=== PATIENT | male | born 1990 | race Caucasian/White ===

== ENCOUNTER 2020-12-23 10:19 | Emergency (ER) | payer MEDICAID ==
[2020-12-23] MEDS ORDERED: Ketorolac 60 MG/2 ML SDV IM ONE (10:49)
--- NOTE | 2020-12-23 10:54 | EDM.PDOC ---
ED HPI GENERAL MEDICAL PROBLEM - General Chief Complaint: Back Pain or Injury Stated Complaint: LOW RT BACK PAIN Time Seen by Provider: 12/23/20 10:40 Source of Information: Reports: Patient History Limitations: Reports: No Limitations - History of Present Illness INITIAL COMMENTS - FREE TEXT/NARRATIVE: 30-year-old male that has had a prior issue with sciatic pain developed right lower back pain yesterday, it worsened overnight and he was having difficulty sleeping. This morning the pain is worse, radiates around into the right groin and his leg feels weird. No incontinence, no pain radiating down the leg. No trauma. Onset: Gradual Duration: Hour(s): (Symptoms for about 24 hours) Location: Reports: Back (Right lumbar area) Quality: Reports: Sharp, Stabbing Worsens with: Reports: Other (Walking is painful), Movement Associated Symptoms: Reports: No Other Symptoms Right Lower Back Pain Score (Numeric/FACES): 8 - Related Data Allergies Allergy/AdvReac Type Severity Reaction Status Date / Time No Known Allergies Allergy Verified 12/23/20 10:28 Home Meds: Home Meds NK [No Known Home Meds] 12/23/20 [History] Past Medical History - Past Health History Medical/Surgical History: Denies Medical/Surgical History Social & Family History - Tobacco Use Tobacco Use Status *Q: Never Tobacco User - Caffeine Use Caffeine Use: Reports: Coffee, Energy Drinks - Recreational Drug Use Recreational Drug Use: No ED ROS GENERAL - Review of Systems Review Of Systems: See Below Constitutional: Denies: Fever, Chills HEENT: Reports: No Symptoms Respiratory: Denies: Shortness of Breath GI/Abdominal: Denies: Nausea, Vomiting Musculoskeletal: Reports: Back Pain Skin: Denies: Bruising Neurological: Denies: Paresthesia Psychiatric: Reports: No Symptoms ED EXAM,LOWER BACK PAIN/INJURY - Physical Exam Exam: See Below Exam Limited By: No Limitations General Appearance: Alert, No Apparent Distress Head: Atraumatic Respiratory/Chest: No Respiratory Distress Back Exam: Paraspinal Tenderness (Patient is very tender to palpation just to the right of the lumbar spine above the sacrum. Buttock is nontender, straight leg raising is equivocal) Extremities: No: Pedal Edema Neurological: Alert, Normal Mood/Affect, No Motor/Sensory Deficits, Oriented x 3 Course - Vital Signs Last Recorded V/S: Last Vital Signs Temp 97 F 03/14/21 10:32 Pulse 60 12/23/20 10:32 Resp 16 12/23/20 10:32 BP 147/91 H 12/23/20 10:32 Pulse Ox 97 12/23/20 10:32 - Orders/Labs/Meds Meds: Medications Discontinued Medications Generic Name Dose Route Start Last Admin Trade Name Shun PRN Reason Stop Dose Admin Ketorolac Tromethamine 60 mg 12/23/20 10:49 12/23/20 10:54 Ketorolac 60 Mg/2 Ml Sdv IM 12/23/20 10:50 60 mg ONETIME ONE Administration - Re-Assessments/Exams Free Text/Narrative Re-Assessment/Exam: 12/23/20 10:54 Patient was given 60 mg of IM Toradol. 12/23/20 11:29 30 minutes after the Toradol, the patient said it helped. Straight leg raising was repeated and there were no symptoms, internal and external rotation of the hip was nontender. I encouraged him to continue with anti-inflammatories and gave him 12 hydrocodone for extra pain control and he is going to increase activity as tolerated. Recheck in 3 to 4 days if not improving satisfactorily. Departure - Departure Time of Disposition: 11:32 Disposition: Home, Self-Care 01 Clinical Impression: Acute low back pain Qualifiers: Back pain laterality: right Sciatica presence: without sciatica Qualified Code(s): M54.5 - Low back pain - Discharge Information Instructions: Acute Back Pain, Adult Referrals: PCP,None [Primary Care Provider] - Forms: ED Department Discharge Care Plan Goals: Continue with ibuprofen, add stronger pain meds as directed if needed, and increase activity as tolerated. Try to stay active but avoid stressing the back with lifting or bending. Recheck in 3 to 4 days if not improving satisfactorily. Sepsis Event Note (ED) - Evaluation Sepsis Screening Result: No Definite Risk - Focused Exam Vital Signs: Vital Signs Temp Pulse Resp BP Pulse Ox 12/23/20 10:32 97 F 60 16 147/91 H 97
== END 2020-12-23 11:38 | disposition home or self-care (01) ==
LOC: JP.ED 10:19
DX: M54.5 Low back pain (principal)
CPT/HCPCS: 96372; 99283; J1885

== ENCOUNTER 2021-01-10 15:44 | Emergency (ER) | payer MEDICAID ==
--- NOTE | 2021-01-10 16:21 | EDM.PDOC ---
ED HPI GENERAL MEDICAL PROBLEM - General Chief Complaint: Abdominal Pain Stated Complaint: RT SIDE LOW BACK PAIN,ABD PAIN, CHEST PAIN Time Seen by Provider: 01/10/21 16:14 Source of Information: Reports: Patient, RN Notes Reviewed History Limitations: Reports: No Limitations - History of Present Illness INITIAL COMMENTS - FREE TEXT/NARRATIVE: 30-year-old gentleman presents emergency department a complaint of abdominal pain, he states that abdominal pain for about a week feels more like a pressure he does admit he has had a change in bowel habits he does not go as frequently as he once did. On his way over here he had a bout of chest pain shortness of breath blurry vision lasted about 5 seconds. 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 Denies: Nausea, Vomiting : Reports: No Symptoms ED EXAM, GI/ABD - Physical Exam Exam: See Below Exam Limited By: No Limitations General Appearance: Alert, WD/WN, No Apparent Distress Respiratory/Chest: No Respiratory Distress, Lungs Clear, Normal Breath Sounds, No Accessory Muscle Use, Chest Non-Tender Cardiovascular: Regular Rate, Rhythm, No Murmur GI/Abdominal Exam: Soft, Non-Tender #1 Interpretation EKG Date: 01/10/21 Time: 16:54 Rhythm: NSR [place]: Normal P-Wave: Present QRS: Normal ST-T: Normal QT: Normal Comparison: NA - No Prior EKG Course - Vital Signs Last Recorded V/S: Last Vital Signs Temp 98 F 01/10/21 16:10 Pulse 71 01/10/21 16:10 Resp 16 01/10/21 16:10 BP 146/94 H 01/10/21 16:10 Pulse Ox 97 01/10/21 16:10 - Orders/Labs/Meds Orders: Active Orders 24 hr Category Date Time Status EKG Documentation Completion [RC] ASDIRECTED Care 01/10/21 16:18 Active Abdomen 1V Upright [CR] Stat Exams 01/10/21 16:18 Taken EKG 12 Lead [EK] Stat Ther 01/10/21 16:18 Ordered Labs: Laboratory Tests 01/10/21 01/10/21 Range/Units 16:38 16:38 WBC 5.9 (4.5-11.0) K/uL RBC 5.06 (4.30-5.90) M/uL Hgb 14.2 (12.0-15.0) g/dL Hct 43.3 (40.0-54.0) % MCV 86 (80-98) fL MCH 28 (27-31) pg MCHC 33 (32-36) % Plt Count 282 (150-400) K/uL Neut % (Auto) 64 (36-66) % Lymph % (Auto) 25 (24-44) % [place] % (Auto) 9 H (2-6) % Eos % (Auto) 2 (2-4) % Baso % (Auto) 1 (0-1) % Sodium 146 (140-148) mmol/L Potassium 4.5 (3.6-5.2) mmol/L Chloride 104 (100-108) mmol/L Carbon Dioxide 29 (21-32) mmol/L Anion Gap 12.8 (5.0-14.0) mmol/L BUN 12 (7-18) mg/dL Creatinine 1.1 (0.8-1.3) mg/dL Est Cr Clr Drug Dosing 99.55 mL/min Estimated GFR (MDRD) > 60 (>60) Glucose 92 (74-106) mg/dL Calcium 9.5 (8.5-10.1) mg/dL Total Bilirubin 0.4 (0.2-1.0) mg/dL AST 34 (15-37) U/L ALT 84 H (12-78) U/L Alkaline Phosphatase 106 (46-116) U/L Troponin I < 0.017 (0.000-0.056) ng/mL Total Protein 7.6 (6.4-8.2) g/dL Albumin 4.2 (3.4-5.0) g/dL Globulin 3.4 (2.3-3.5) g/dL Albumin/Globulin Ratio 1.2 (1.2-2.2) Meds: Medications Discontinued Medications Generic Name Dose Route Start Last Admin Trade Name Shun PRN Reason Stop Dose Admin Cyclobenzaprine HCl 10 mg 01/10/21 17:23 01/10/21 17:39 Cyclobenzaprine 10 Mg Tab PO 01/10/21 17:24 10 mg ONETIME ONE Administration Departure - Departure Time of Disposition: 18:07 Disposition: Home, Self-Care 01 Condition: Fair Clinical Impression: Abdominal pain Qualifiers: Abdominal location: unspecified location Qualified Code(s): R10.9 - Unspecified abdominal pain - Discharge Information Instructions: Abdominal Pain, Adult Referrals: PCP,None [Primary Care Provider] - Forms: ED Department Discharge Additional Instructions: Try the Flexeril as needed continue with your Tylenol and Motrin for pain control, please followup with your primary care provider in 3-5 days if not better, please call return to the emergency department with worsening of symptoms. Sepsis Event Note (ED) - Evaluation Sepsis Screening Result: No Definite Risk - Focused Exam Vital Signs: Vital Signs Temp Pulse Resp BP Pulse Ox 01/10/21 16:10 98 F 71 16 146/94 H 97 01/10/21 16:00 98 F 71 16 146/94 H 97 - My Orders Last 24 Hours: My Active Orders 01/10/21 16:18 EKG Documentation Completion [RC] ASDIRECTED Abdomen 1V Upright [CR] Stat EKG 12 Lead [EK] Stat - Assessment/Plan Last 24 Hours: My Active Orders 01/10/21 16:18 EKG Documentation Completion [RC] ASDIRECTED Abdomen 1V Upright [CR] Stat EKG 12 Lead [EK] Stat Plan: Assessment Acuity = acute Site and laterality = abdominal pain Etiology = unknown Manifestations = none Location of injury = Home Lab values = CBC CMP plain film abdomen showed no acute process troponin is negative Plan He had good relief with Flexeril he did have a history of back injury a week prior we will try Flexeril 10 mg 1 tab p.o. 3 times daily as needed total #15 follow-up primary care 3 to 5 days if not better This note was dictated using [employer] recognition software please call with any questions on syntax or grammar.
[2021-01-10] MEDS ORDERED: Cyclobenzaprine 10 MG Tab PO ONE (17:23)
--- NOTE | 2021-01-11 08:59 | CR ---
Abdomen 1V Upright CLINICAL HISTORY: Abdominal pain FINDINGS: No free air is identified. Small intestinal gas pattern is nonacute. There is gas and feces are the colon. No definite urinary calcifications are seen IMPRESSION: Nonspecific study of the abdomen
== END 2021-01-10 18:20 | disposition home or self-care (01) ==
LOC: JP.ED 15:44
DX: R10.9 Unspecified abdominal pain (principal)
CPT/HCPCS: 36415; 74018; 74018-26; 80053; 84484; 85025; 93005; 99283; 99284-25; A9270-GY

== ENCOUNTER 2021-01-21 15:12 | Emergency (ER) | payer MEDICAID ==
[2021-01-21] MEDS ORDERED: Sodium Chloride 0.9% 1,000 ML IV STA (16:07)
[2021-01-21] MEDS ORDERED: Sodium Chloride 0.9% 10 ML Syringe FLUSH PRN (16:07)
--- NOTE | 2021-01-21 16:12 | EDM.PDOC ---
ED HPI GENERAL MEDICAL PROBLEM - General Chief Complaint: Abdominal Pain Stated Complaint: RIGHT SIDE AND CHEST PAIN Time Seen by Provider: 01/21/21 16:01 Source of Information: Reports: Patient, Old Records, RN Notes Reviewed History Limitations: Reports: No Limitations - History of Present Illness INITIAL COMMENTS - FREE TEXT/NARRATIVE: 30-year-old gentleman presents emergency department day complaint of right flank abdominal pain, I had the opportunity to evaluate him about 2 weeks ago at which time blood work was unremarkable plain film the abdomen does show large amount of stool and gas recommended trying colonoscopy prep because I felt he was constipated unfortunately did not try any that. He now returns emergency department stating still having abdominal pain is not getting any better he also is having some chest pain as well comes at night last less than a minute tingling down his left arm he admits that his anxiety is in good control. He is not established with primary care because states "does not know how" - Related Data Allergies Allergy/AdvReac Type Severity Reaction Status Date / Time No Known Allergies Allergy Verified 01/21/21 15:38 Home Meds: Home Meds Ibuprofen 400 - 600 mg PO ASDIRECTED 01/21/21 [History] Past Medical History Musculoskeletal History: Reports: Fracture Other Musculoskeletal History: right ankle Neurological History: Reports: Other (See Below) Other Neuro History: facial numbness Psychiatric History: Reports: Anxiety - Infectious Disease History Infectious Disease History: Reports: Chicken Pox - Past Surgical History Male Surgical History: Reports: Other (See Below) Other Male Surgeries/Procedures: 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 Denies: Constipation, Diarrhea, Nausea, Vomiting : Reports: No Symptoms Musculoskeletal: Reports: No Symptoms Skin: Reports: No Symptoms Neurological: Reports: Tingling (Left arm) ED EXAM, GI/ABD - Physical Exam Exam: See Below Exam Limited By: No Limitations General Appearance: Alert, WD/WN, No Apparent Distress Respiratory/Chest: No Respiratory Distress, Lungs Clear, Normal Breath Sounds, No Accessory Muscle Use, Chest Non-Tender Cardiovascular: Regular Rate, Rhythm, No Murmur GI/Abdominal Exam: Soft, Non-Tender #1 Interpretation EKG Date: 01/21/21 Rhythm: NSR [place]: Normal P-Wave: Present QRS: Normal ST-T: Normal QT: Normal Comparison: NA - No Prior EKG Course - Vital Signs Last Recorded V/S: Last Vital Signs Temp 97.6 F 01/21/21 15:37 Pulse 84 01/21/21 15:37 Resp 16 01/21/21 15:37 BP 150/101 H 01/21/21 15:37 Pulse Ox 99 01/21/21 15:37 - Orders/Labs/Meds Orders: Active Orders 24 hr Category Date Time Status EKG Documentation Completion [RC] ASDIRECTED Care 01/21/21 16:08 Active Peripheral IV Care [RC] . DIRECTED Care 01/21/21 16:08 Active Sodium Chloride 0.9% [Saline Flush] Med 01/21/21 16:07 Active 10 ml FLUSH ASDIRECTED PRN Peripheral IV Insertion Adult [OM.PC] Urgent Oth 01/21/21 16:07 Ordered EKG 12 Lead [EK] Stat Ther 01/21/21 16:08 Ordered Medication Orders Sodium Chloride (Sodium Chloride 0.9% 10 Ml Syringe) 10 ml FLUSH ASDIRECTED PRN PRN Reason: Keep Vein Open Last Admin: 01/21/21 17:56 Dose: 10 ml Documented by: [email or web address] Labs: Laboratory Tests 01/21/21 01/21/21 01/21/21 Range/Units 16:21 16:21 16:21 WBC 5.2 (4.5-11.0) K/uL RBC 5.15 (4.30-5.90) M/uL Hgb 14.6 (12.0-15.0) g/dL Hct 43.2 (40.0-54.0) % MCV 84 (80-98) fL MCH 28 (27-31) pg MCHC 34 (32-36) % Plt Count 321 (150-400) K/uL Neut % (Auto) 50 (36-66) % Lymph % (Auto) 37 (24-44) % [place] % (Auto) 10 H (2-6) % Eos % (Auto) 2 (2-4) % Baso % (Auto) 1 (0-1) % Sodium 142 (140-148) mmol/L Potassium 4.5 (3.6-5.2) mmol/L Chloride 102 (100-108) mmol/L Carbon Dioxide 28 (21-32) mmol/L Anion Gap 12.3 (5.0-14.0) mmol/L BUN 11 (7-18) mg/dL Creatinine 1.0 (0.8-1.3) mg/dL Est Cr Clr Drug Dosing TNP Estimated GFR (MDRD) > 60 (>60) Glucose 90 (74-106) mg/dL Lactic Acid 1.0 (0.4-2.0) mmol/L Calcium 9.6 (8.5-10.1) mg/dL Total Bilirubin 0.2 (0.2-1.0) mg/dL AST 34 (15-37) U/L ALT 83 H (12-78) U/L Alkaline Phosphatase 120 H (46-116) U/L Troponin I < 0.017 (0.000-0.056) ng/mL Total Protein 8.1 (6.4-8.2) g/dL Albumin 4.4 (3.4-5.0) g/dL Globulin 3.7 H (2.3-3.5) g/dL Albumin/Globulin Ratio 1.2 (1.2-2.2) Lipase 138 (73-393) U/L Urine Color (YELLOW) Urine Appearance (CLEAR) Urine pH (5.0-8.0) Ur Specific [place] (1.008-1.030) Urine Protein (NEGATIVE) mg/dL Urine Glucose (UA) (NEGATIVE) mg/dL Urine Ketones (NEGATIVE) mg/dL Urine Occult Blood (NEGATIVE) Urine Nitrite (NEGATIVE) Urine Bilirubin (NEGATIVE) Urine Urobilinogen (0.2-1.0) EU/dL Ur Leukocyte Esterase (NEGATIVE) Urine RBC (0-5) Urine WBC (0-5) Ur Epithelial Cells Amorphous Sediment Urine Bacteria Urine Mucus Urine Opiates Screen (NEGATIVE) Ur Oxycodone Screen (NEGATIVE) Urine Methadone Screen (NEGATIVE) Ur Propoxyphene Screen (NEGATIVE) Ur Barbiturates Screen (NEGATIVE) Ur Tricyclics Screen (NEGATIVE) Ur Phencyclidine Scrn (NEGATIVE) Ur Amphetamine Screen (NEGATIVE) U Methamphetamines Scrn (NEGATIVE) Urine MDMA Screen (NEGATIVE) U Benzodiazepines Scrn (NEGATIVE) U Cocaine Metab Screen (NEGATIVE) U Marijuana (THC) Screen (NEGATIVE) 01/21/21 01/21/21 Range/Units 16:56 16:56 WBC (4.5-11.0) K/uL RBC (4.30-5.90) M/uL Hgb (12.0-15.0) g/dL Hct (40.0-54.0) % MCV (80-98) fL MCH (27-31) pg MCHC (32-36) % Plt Count (150-400) K/uL Neut % (Auto) (36-66) % Lymph % (Auto) (24-44) % [place] % (Auto) (2-6) % Eos % (Auto) (2-4) % Baso % (Auto) (0-1) % Sodium (140-148) mmol/L Potassium (3.6-5.2) mmol/L Chloride (100-108) mmol/L Carbon Dioxide (21-32) mmol/L Anion Gap (5.0-14.0) mmol/L BUN (7-18) mg/dL Creatinine (0.8-1.3) mg/dL Est Cr Clr Drug Dosing Estimated GFR (MDRD) (>60) Glucose (74-106) mg/dL Lactic Acid (0.4-2.0) mmol/L Calcium (8.5-10.1) mg/dL Total Bilirubin (0.2-1.0) mg/dL AST (15-37) U/L ALT (12-78) U/L Alkaline Phosphatase (46-116) U/L Troponin I (0.000-0.056) ng/mL Total Protein (6.4-8.2) g/dL Albumin (3.4-5.0) g/dL Globulin (2.3-3.5) g/dL Albumin/Globulin Ratio (1.2-2.2) Lipase (73-393) U/L Urine Color Yellow (YELLOW) Urine Appearance Clear (CLEAR) Urine pH 6.5 (5.0-8.0) Ur Specific [place] >= 1.030 (1.008-1.030) Urine Protein Negative (NEGATIVE) mg/dL Urine Glucose (UA) Negative (NEGATIVE) mg/dL Urine Ketones Negative (NEGATIVE) mg/dL Urine Occult Blood Negative (NEGATIVE) Urine Nitrite Negative (NEGATIVE) Urine Bilirubin Negative (NEGATIVE) Urine Urobilinogen 0.2 (0.2-1.0) EU/dL Ur Leukocyte Esterase Negative (NEGATIVE) Urine RBC Not seen (0-5) Urine WBC Not seen (0-5) Ur Epithelial Cells Not seen Amorphous Sediment Not seen Urine Bacteria Rare Urine Mucus Rare Urine Opiates Screen Negative (NEGATIVE) Ur Oxycodone Screen Negative (NEGATIVE) Urine Methadone Screen Negative (NEGATIVE) Ur Propoxyphene Screen Negative (NEGATIVE) Ur Barbiturates Screen Negative (NEGATIVE) Ur Tricyclics Screen Negative (NEGATIVE) Ur Phencyclidine Scrn Negative (NEGATIVE) Ur Amphetamine Screen Negative (NEGATIVE) U Methamphetamines Scrn Negative (NEGATIVE) Urine MDMA Screen Negative (NEGATIVE) U Benzodiazepines Scrn Negative (NEGATIVE) U Cocaine Metab Screen Negative (NEGATIVE) U Marijuana (THC) Screen Negative (NEGATIVE) Meds: Medications Generic Name Dose Route Start Last Admin Trade Name Freq PRN Reason Stop Dose Admin Sodium Chloride 10 ml 01/21/21 16:07 01/21/21 17:56 Sodium Chloride 0.9% 10 Ml Syringe FLUSH 10 ml ASDIRECTED PRN Administration Keep Vein Open Discontinued Medications Generic Name Dose Route Start Last Admin Trade Name Freq PRN Reason Stop Dose Admin Sodium Chloride 1,000 mls @ 500 mls/hr 01/21/21 16:07 01/21/21 17:56 Normal Saline IV 01/21/21 18:06 500 mls/hr .BOLUS STA Administration Sodium Chloride 85 mls @ 3.5 mls/sec 01/21/21 16:30 01/21/21 17:08 Normal Saline IV 01/21/21 17:00 3.5 mls/sec ASDIRECTED POLLY Administration Iopamidol 150 ml 01/21/21 16:30 01/21/21 17:08 Iopamidol 612 Mg/Ml 150 Ml Bottle IV 01/21/21 17:00 150 ml . DIRECTED POLLY Administration Sodium Chloride 10 ml 01/21/21 16:30 01/21/21 17:08 Sodium Chloride 0.9% 10 Ml Syringe FLUSH 01/21/21 16:31 10 ml ONETIME ONE Administration Departure - Departure Time of Disposition: 18:27 Disposition: Home, Self-Care 01 Condition: Fair Clinical Impression: Gallbladder disease - Discharge Information Referrals: PCP,None [Primary Care Provider] - Forms: ED Department Discharge Additional Instructions: Try the MiraLAX, try different dietary habits to see if this improves your gallbladder disease, please establish with primary care for further evaluation Sepsis Event Note (ED) - Evaluation Sepsis Screening Result: No Definite Risk - Focused Exam Vital Signs: Vital Signs Temp Pulse Resp BP Pulse Ox 01/21/21 15:37 97.6 F 84 16 150/101 H 99 - My Orders Last 24 Hours: My Active Orders 01/21/21 16:07 Sodium Chloride 0.9% [Saline Flush] 10 ml FLUSH ASDIRECTED PRN Peripheral IV Insertion Adult [OM.PC] Urgent 01/21/21 16:08 EKG Documentation Completion [RC] ASDIRECTED Peripheral IV Care [RC] . DIRECTED EKG 12 Lead [EK] Stat - Assessment/Plan Last 24 Hours: My Active Orders 01/21/21 16:07 Sodium Chloride 0.9% [Saline Flush] 10 ml FLUSH ASDIRECTED PRN Peripheral IV Insertion Adult [OM.PC] Urgent 01/21/21 16:08 EKG Documentation Completion [RC] ASDIRECTED Peripheral IV Care [RC] . DIRECTED EKG 12 Lead [EK] Stat Plan: Assessment Acuity = acute Site and laterality = gallbladder disease Etiology = unknown Manifestations = abdominal pain Location of injury = Home Lab values = CBC unremarkable AST slightly elevated 83 alk phos slightly elevated at 120 probably related to gallbladder disease urinalysis unremarkable urine drug screen is negative CT scan does describe hepatic steatosis as well as punctate lesions consistent with gallstones and sludge in the gallbladder with moderate amount of stool in the ascending colon Plan I did review with him lab work and provided him a copy of his CT scan he is going to follow-up with his primary care for further evaluation he will also make some dietary changes he will also try some MiraLAX This note was dictated using [employer] voice recognition software please call with any questions on syntax or grammar.
[2021-01-21] MEDS ORDERED: Sodium Chloride 0.9% 10 ML Syringe FLUSH ONE (16:30)
[2021-01-21] MEDS ORDERED: Iopamidol 612 MG/ML 150 ML Bottle IV SCH (16:30)
--- NOTE | 2021-01-21 18:13 | CRLCT ---
INDICATION: Right flank pain TECHNIQUE: CT abdomen and pelvis acquired with IV contrast. 150 mL of Isovue 300 administered. COMPARISON: None available FINDINGS: Lower chest: A questionable small hiatal hernia. Liver: Mild steatosis. Spleen: Unremarkable. Pancreas: Unremarkable. Gallbladder and bile ducts: Apparent subtle punctate and reticular densities within the gallbladder could represent sludge, poorly calcified gallstones or artifact. Adrenal glands: Unremarkable. Kidneys: Symmetrical nephrograms without hydronephrosis. Minor focal stranding along the lateral aspect of the left mid kidney, nonspecific. GI tract: Mild thickening of the gastric pylorus wall versus under distention. No bowel obstruction. Borderline mid appendiceal caliber is related to luminal debris, without findings of appendicitis. No significant pericolonic changes. Foci of mild colonic wall prominence are at least partially related to under distension. Vascular structures: Unremarkable. Lymph nodes: Unremarkable. Miscellaneous: No significant free fluid or free air. A small fat containing umbilical hernia. Apparent post right orchiectomy changes. Pelvic Organs: Mild bladder wall prominence is at least partially related to underdistention. Unremarkable prostate. Bones: A sclerotic lesion in the right femoral intertrochanteric region, nonspecific. IMPRESSION: No obstructive uropathy. No evidence of gross appendicitis, diverticulitis or bowel obstruction. Mild gastric pylorus wall prominence versus underdistention. Correlate clinically to exclude PUD. Mild bladder wall prominence is at least partially related to under distention. Correlate with urinalysis. Mild hepatic steatosis. Status post right orchiectomy. A proximal right femoral sclerotic focus, nonspecific. If there is history of neoplasm, consider follow-up to ensure stability. Dictated by Siva Lynn MD @ 01/21/2021 6:09:21 PM Please note that all CT scans at this facility use dose modulation, iterative reconstruction, and/or weight-based dosing when appropriate to reduce radiation dose to as low as reasonably achievable. Dictated by: Siva Lynn MD @ 01/21/2021 18:11:39 (Electronically Signed)
== END 2021-01-21 18:54 | disposition home or self-care (01) ==
LOC: JP.ED 15:12
DX: K82.9 Disease of gallbladder, unspecified (principal); R07.9 Chest pain, unspecified; R20.2 Paresthesia of skin
CPT/HCPCS: 36415; 74177; 80053; 80305; 81001; 83605; 83690; 84484; 85025; 99284; J7030; Q9967

== ENCOUNTER 2021-03-23 10:51 | Emergency (ER) | payer MEDICAID ==
--- NOTE | 2021-03-23 12:11 | EDM.PDOC ---
ED HPI GENERAL MEDICAL PROBLEM - General Chief Complaint: Abdominal Pain Stated Complaint: SWOLLEN RIGHT SIDE Time Seen by Provider: 03/23/21 11:41 Source of Information: Reports: Patient, Old Records History Limitations: Reports: No Limitations - History of Present Illness INITIAL COMMENTS - FREE TEXT/NARRATIVE: 30 yo male presents to the ER in no acute distress complaining of right sided ABD pain. The pain is intermittently sharp. Denies pain with urination. Last BM was multiple days ago. Earlier this week - Related Data Allergies Allergy/AdvReac Type Severity Reaction Status Date / Time No Known Allergies Allergy Verified 03/23/21 11:04 Home Meds: Home Meds Omeprazole 1 tab PO DAILY 03/23/21 [History] Past Medical History - Past Health History Medical/Surgical History: Denies Medical/Surgical History HEENT History: Reports: None Cardiovascular History: Reports: None Respiratory History: Reports: None Gastrointestinal History: Reports: None Musculoskeletal History: Reports: Fracture Other Musculoskeletal History: right ankle Neurological History: Reports: Other (See Below) Other Neuro History: facial numbness Psychiatric History: Reports: Anxiety Endocrine/Metabolic History: Reports: None Hematologic History: Reports: None Immunologic History: Reports: None Oncologic (Cancer) History: Reports: None Dermatologic History: Reports: None - Infectious Disease History Infectious Disease History: Reports: Chicken Pox - Past Surgical History Male Surgical History: Reports: Other (See Below) Other Male Surgeries/Procedures: 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 Denies: Nausea, Vomiting ED EXAM, GI/ABD - Physical Exam Exam: See Below Exam Limited By: No Limitations General Appearance: Alert, WD/WN, No Apparent Distress Respiratory/Chest: No Respiratory Distress, Lungs Clear, Normal Breath Sounds. No: Crackles, Rhonchi, Wheezing Cardiovascular: Regular Rate, Rhythm, No Murmur GI/Abdominal Exam: Normal Bowel Sounds, Soft, No Distention, Distended (mild), Tender. No: Rigid, Rebound, Mass, Hepatomegaly Course - Vital Signs Last Recorded V/S: Last Vital Signs Temp 36.3 C 03/23/21 11:10 Pulse 72 03/23/21 11:10 Resp 14 03/23/21 11:10 BP 139/88 03/23/21 11:10 Pulse Ox 98 03/23/21 11:10 - Orders/Labs/Meds Orders: Active Orders 24 hr Category Date Time Status Abdomen 1V Upright [CR] Stat Exams 03/23/21 12:03 Taken Labs: Laboratory Tests 03/23/21 Range/Units 12:12 WBC 3.9 L (4.5-11.0) K/uL RBC 5.22 (4.30-5.90) M/uL Hgb 15.0 (12.0-15.0) g/dL Hct 43.7 (40.0-54.0) % MCV 84 (80-98) fL MCH 29 (27-31) pg MCHC 34 (32-36) % Plt Count 295 (150-400) K/uL Neut % (Auto) 55.4 (36-66) % Lymph % (Auto) 33.2 (24-44) % [place] % (Auto) 8.3 H (2-6) % Eos % (Auto) 1.3 L (2-4) % Baso % (Auto) 1.8 H (0-1) % Meds: Medications Discontinued Medications Generic Name Dose Route Start Last Admin Trade Name Freq PRN Reason Stop Dose Admin Magnesium Citrate 296 ml 03/23/21 13:02 03/23/21 13:17 Magnesium Citrate Solution 296 Ml Bottle PO 03/23/21 13:03 296 ml ONETIME ONE Administration - Re-Assessments/Exams Free Text/Narrative Re-Assessment/Exam: 03/23/21 14:11 WBC mildly low no indication of appendix. reviewed CT from 6 weeks ago. pt has not established care with PCP. moderate amount of retained stool on ABD x-ray no indication of obstruction normal gas patterns. pt given 1 bottle of mg citrate in ER without results. He would like to DC home. Departure - Departure Time of Disposition: 14:15 Disposition: Home, Self-Care 01 Condition: Good Clinical Impression: Constipation Qualifiers: Constipation type: slow transit constipation Qualified Code(s): K59.01 - Slow transit constipation - Discharge Information *PRESCRIPTION DRUG MONITORING PROGRAM REVIEWED*: Not Applicable *COPY OF PRESCRIPTION DRUG MONITORING REPORT IN PATIENT TUSHAR: Not Applicable Instructions: Constipation, Adult, [id number] Referrals: PCP,None [Primary Care Provider] - Forms: ED Department Discharge Additional Instructions: constipation: repeat bottle of magnisium citrate if no results by this evening. you will find this in the pharmacy section near the bowel treatments goal is one large soft bowel movement daily minimum of 100 ounces of fluid daily, more if you are working out side in the he at. 6 servings of fruits and vegetables daily, this will give you the fiber you need to stay regular prunes are a good source of fiber establish care with a primary care doctor Sepsis Event Note (ED) - Evaluation Sepsis Screening Result: No Definite Risk - Focused Exam Vital Signs: Vital Signs Temp Pulse Resp BP Pulse Ox 03/23/21 11:10 36.3 C 72 14 139/88 98 - My Orders Last 24 Hours: My Active Orders 03/23/21 12:03 Abdomen 1V Upright [CR] Stat - Assessment/Plan Last 24 Hours: My Active Orders 03/23/21 12:03 Abdomen 1V Upright [CR] Stat
[2021-03-23] MEDS ORDERED: Magnesium Citrate Solution 296 ML Bottle PO ONE (13:02)
--- NOTE | 2021-03-25 09:41 | CR ---
Abdomen 1V Upright CLINICAL HISTORY: Abdominal pain FINDINGS: No free air is identified. Lung bases are clear. Small intestinal gas pattern is nonacute. There is gas and feces in the colon. IMPRESSION: Nonacute intestinal gas pattern
== END 2021-03-23 14:27 | disposition home or self-care (01) ==
LOC: JP.ED 10:51
DX: K59.01 Slow transit constipation (principal); Z79.899 Other long term (current) drug therapy
CPT/HCPCS: 36415; 74018; 85025; 99283; 99284; A9270

== ENCOUNTER 2021-04-23 13:18 | Emergency (ER) | payer MEDICAID ==
--- NOTE | 2021-04-23 14:32 | EDM.PDOC ---
ED HPI GENERAL MEDICAL PROBLEM - General Chief Complaint: Upper Extremity Injury/Pain Stated Complaint: LEFT ARM IS NUMB FROM SHOULDER DOWN Time Seen by Provider: 04/23/21 14:26 Source of Information: Reports: Patient, RN Notes Reviewed History Limitations: Reports: No Limitations - History of Present Illness INITIAL COMMENTS - FREE TEXT/NARRATIVE: 30-year-old gentleman presents emergency department day complaint of chest pain, he states that chest pain on and off for the last 4 days he also has a history of anxiety has had some numbness and tingling into his left arm no nausea vomiting no shortness of breath. He has tried anxiety medications in the past however he does not tolerate - Related Data Allergies Allergy/AdvReac Type Severity Reaction Status Date / Time No Known Allergies Allergy Verified 04/23/21 13:47 Home Meds: Home Meds Omeprazole 1 tab PO DAILY 03/23/21 [History] Past Medical History Musculoskeletal History: Reports: Fracture Other Musculoskeletal History: right ankle Neurological History: Reports: Other (See Below) Other Neuro History: facial numbness Psychiatric History: Reports: Anxiety - Infectious Disease History Infectious Disease History: Reports: Chicken Pox - Past Surgical History Head Surgeries/Procedures: Reports: None Male Surgical History: Reports: Other (See Below) Other Male Surgeries/Procedures: 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 Neurological Surgical History: Reports: None Musculoskeletal Surgical History: Reports: None Dermatological Surgical History: Reports: None Social & Family History - Tobacco Use Tobacco Use Status *Q: Never Tobacco User Second Hand Smoke Exposure: No - Caffeine Use Caffeine Use: Reports: Coffee, Energy Drinks - Recreational Drug Use Recreational Drug Use: No Review of Systems - Review of Systems Review Of Systems: See Below Respiratory: Reports: No Symptoms Cardiovascular: Reports: Chest Pain Neurological: Reports: Numbness ED EXAM, GENERAL - Physical Exam Exam: See Below Exam Limited By: No Limitations General Appearance: Alert, WD/WN, No Apparent Distress Respiratory/Chest: No Respiratory Distress, Lungs Clear, Normal Breath Sounds, No Accessory Muscle Use, Chest Non-Tender Cardiovascular: Regular Rate, Rhythm, No Murmur GI/Abdominal: Soft, Non-Tender #1 Interpretation EKG Date: 04/23/21 Time: 14:56 Rhythm: NSR [place]: Normal P-Wave: Present QRS: Normal ST-T: Normal QT: Normal Comparison: No Change Course - Vital Signs Last Recorded V/S: Last Vital Signs Temp 98.1 F 04/23/21 13:51 Pulse 66 04/23/21 13:51 Resp 12 04/23/21 13:51 BP 116/86 04/23/21 13:51 Pulse Ox 98 04/23/21 13:51 - Orders/Labs/Meds Orders: Active Orders 24 hr Category Date Time Status Cardiac Monitoring [RC] .As Directed Care 04/23/21 14:29 Active EKG Documentation Completion [RC] ASDIRECTED Care 04/23/21 14:29 Active EKG 12 Lead [EK] Stat Ther 04/23/21 14:29 Ordered Labs: Laboratory Tests 04/23/21 04/23/21 Range/Units 14:37 14:37 WBC 4.2 L (4.5-11.0) K/uL RBC 4.92 (4.30-5.90) M/uL Hgb 13.9 (12.0-15.0) g/dL Hct 41.9 (40.0-54.0) % MCV 85 (80-98) fL MCH 28 (27-31) pg MCHC 33 (32-36) % Plt Count 282 (150-400) K/uL Neut % (Auto) 56.1 (36-66) % Lymph % (Auto) 31.0 (24-44) % [place] % (Auto) 10.3 H (2-6) % Eos % (Auto) 1.9 L (2-4) % Baso % (Auto) 0.7 (0-1) % Sodium 139 L (140-148) mmol/L Potassium 4.0 (3.6-5.2) mmol/L Chloride 102 (100-108) mmol/L Carbon Dioxide 26 (21-32) mmol/L Anion Gap 15.0 H (5.0-14.0) mmol/L BUN 17 D (7-18) mg/dL Creatinine 1.0 (0.8-1.3) mg/dL Est Cr Clr Drug Dosing 109.50 mL/min Estimated GFR (MDRD) > 60 (>60) Glucose 93 (74-106) mg/dL Calcium 9.1 (8.5-10.1) mg/dL Troponin I < 0.017 (0.000-0.056) ng/mL Departure - Departure Time of Disposition: 15:18 Disposition: Home, Self-Care 01 Condition: Fair Clinical Impression: Anxiety - Discharge Information Referrals: PCP,None [Primary Care Provider] - Forms: ED Department Discharge Additional Instructions: Try the Ativan half tablet up to 3 times a day as needed for symptomatic relief, please follow-up with your primary care in the next 3 to 5 days for reevaluation call return to the emergency department worsening of symptoms Sepsis Event Note (ED) - Evaluation Sepsis Screening Result: No Definite Risk - Focused Exam Vital Signs: Vital Signs Temp Pulse Resp BP Pulse Ox 04/23/21 13:51 98.1 F 66 12 116/86 98 04/23/21 13:49 98.1 F 66 12 116/86 98 - My Orders Last 24 Hours: My Active Orders 04/23/21 14:29 Cardiac Monitoring [RC] .As Directed EKG Documentation Completion [RC] ASDIRECTED EKG 12 Lead [EK] Stat - Assessment/Plan Last 24 Hours: My Active Orders 04/23/21 14:29 Cardiac Monitoring [RC] .As Directed EKG Documentation Completion [RC] ASDIRECTED EKG 12 Lead [EK] Stat Plan: Assessment Acuity = acute Site and laterality = anxiety Etiology = generalized anxiety disorder Manifestations = none Location of injury = Home Lab values = CBC BMP troponin all within normal limits chest x-ray shows no acute process EKG unremarkable Plan Virgil to follow-up with his primary in the meantime he can try Ativan half milligram 1 tab p.o. 3 times daily as needed so prescription written for the [facility] med machine This note was dictated using [employer] voice recognition software please call with any questions on syntax or grammar.
--- NOTE | 2021-04-23 15:04 | CR ---
CHEST: 2 view CLINICAL HISTORY:Chest pain COMPARISON:None FINDINGS: The heart size, pulmonary vascularity and hilar structures are normal. No infiltrate effusion or pneumothorax is seen. IMPRESSION: No acute cardiopulmonary process.
== END 2021-04-23 15:26 | disposition home or self-care (01) ==
LOC: JP.ED 13:18
DX: F41.9 Anxiety disorder, unspecified (principal); Z79.899 Other long term (current) drug therapy
CPT/HCPCS: 36415; 71046; 71046-26; 80048; 84484; 85025; 93005; 99284-25

== ENCOUNTER 2021-04-26 15:45 | Emergency (ER) | payer MEDICAID ==
--- NOTE | 2021-04-26 17:52 | EDM.PDOC ---
<Roger Chaudhry - Last Filed: 04/27/21 07:15> ED HPI GENERAL MEDICAL PROBLEM - General Chief Complaint: ENT Problem Stated Complaint: NECK AND EAR PAIN Time Seen by Provider: 04/26/21 17:30 - Related Data Allergies Allergy/AdvReac Type Severity Reaction Status Date / Time No Known Allergies Allergy Verified 04/26/21 17:30 Home Meds: Home Meds Omeprazole 1 tab PO DAILY 03/23/21 [History] Amoxicillin/Potassium Clav [Amox-Clav 875-125 mg Tablet] 1 cap PO BID 04/26/21 [History] Escitalopram [Lexapro] 10 mg PO DAILY 04/26/21 [History] LORazepam [Ativan] 1 mg PO ASDIRECTED 04/26/21 [History] hydrOXYzine HCL [Atarax] 25 mg PO ASDIRECTED 04/26/21 [History] Departure - Departure Disposition: Home, Self-Care 01 Clinical Impression: Neck ache - Discharge Information Referrals: Tuan Bonner MD [Primary Care Provider] - Forms: ED Department Discharge Additional Instructions: Try the naproxen as needed twice per day. You can use ice as needed for pain as well. Continue to take your antibiotic until completion. Continue regular activities and diet. Follow up if you have any new changes or other concerning symptoms. <Corin Hernandez - Last Filed: 04/27/21 07:17> ED HPI GENERAL MEDICAL PROBLEM - General Source of Information: Reports: Patient History Limitations: Reports: No Limitations - History of Present Illness INITIAL COMMENTS - FREE TEXT/NARRATIVE: 30 year old male with recent sinus infection, taking amoxicillin for the last two days, arrives with complaints of right ear pain, center neck pain radiating down to upper back, and tingling in his lips "sometimes". Pt reports that the amoxicillin seems to be helping his sinus symptoms but now this neck pain is bothering him. 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 He reports he has had these symptoms for 4 days but did not bring up these symptoms at visit with primary when he received his sinus infection diagnosis. He is afebrile. Denies, N/V/D or other associated symptoms. He is taking in oral fluids and solids WNL. The neck pain does not affect his daily work. Onset: Gradual Onset Date: 04/26/21 Duration: Day(s): Location: Reports: Neck, Back, Other (right ear, neck, back, ) Quality: Reports: Ache Severity: Moderate Improves with: Reports: None Worsens with: Reports: None Context: Reports: Activity Associated Symptoms: Reports: No Other Symptoms Neck Pain Score (Numeric/FACES): 7 Past Medical History HEENT History: Reports: None Cardiovascular History: Reports: None Respiratory History: Reports: None Gastrointestinal History: Reports: None Genitourinary History: Reports: None Musculoskeletal History: Reports: Fracture Other Musculoskeletal History: right ankle Neurological History: Reports: Other (See Below) Other Neuro History: facial numbness Psychiatric History: Reports: Anxiety Endocrine/Metabolic History: Reports: None Hematologic History: Reports: None Immunologic History: Reports: None Oncologic (Cancer) History: Reports: None Dermatologic History: Reports: None - Infectious Disease History Infectious Disease History: Reports: Chicken Pox - Past Surgical History Head Surgeries/Procedures: Reports: None Male Surgical History: Reports: Other (See Below) Other Male Surgeries/Procedures: 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 Denies: Fever, Chills, Malaise, Weakness HEENT: Reports: Ear Pain Respiratory: Reports: No Symptoms. Denies: Shortness of Breath, Wheezing Cardiovascular: Reports: No Symptoms. Denies: Chest Pain, Edema Endocrine: Reports: No Symptoms GI/Abdominal: Reports: No Symptoms. Denies: Abdominal Pain, Diarrhea, Decreased Appetite, Nausea, Vomiting : Reports: No Symptoms. Denies: Flank Pain, Frequency, Hematuria Musculoskeletal: Reports: Neck Pain (center cervical neck pain radiating down back between shoulder blades) Skin: Reports: No Symptoms. Denies: Diaphoresis, Rash Neurological: Reports: No Symptoms. Denies: Dizziness, Headache, Numbness Psychiatric: Reports: No Symptoms Hematologic/Lymphatic: Reports: No Symptoms Immunologic: Reports: No Symptoms ED EXAM, ENT - Physical Exam Exam: See Below Text/Narrative:: Yfn is resting on chair during exam, respirations regular and non labored. skin warm and dry. He is alert and oriented. Able to converse but offers little detail when questioned. Nonspecific with severity of complaints. No pain with movement or palpation of the neck. Bilateral ears show normal exam. Exam Limited By: No Limitations General Appearance: Alert, WD/WN, No Apparent Distress Ears: Normal External Exam, Normal Canal, Normal TMs Nose: Normal Inspection, Normal Mucousa Mouth/Throat: Normal Inspection, Normal Gums, Normal Lips, Normal Oropharynx. No: Throat Swelling, Tongue Swelling, Tonsillar Swelling Head: Atraumatic Neck: Normal Inspection, Full Range of Motion, Tender Midline (mild tenderness with palpation). No: Lymphadenopathy (R) Respiratory/Chest: No Respiratory Distress, Lungs Clear, Normal Breath Sounds. No: Respiratory Distress, Decreased Breath Sounds, Wheezing Cardiovascular: Normal Peripheral Pulses, No Edema GI/Abdominal: Soft, Non-Tender (Male) Exam: Deferred Rectal (Males) Exam: Deferred Back: Normal Inspection, Full Range of Motion Extremities: Normal Inspection, Normal Range of Motion, Non-Tender. No: Pedal Edema Neurological: Alert, Oriented, Normal Cognition, Normal Gait Psychiatric: Flat Affect Skin: Warm, Dry, Intact, No Rash Lymphatic: No Adenopathy Course - Vital Signs Text/Narrative:: Discussed with patient symptoms, pharmacologic and non pharmacologic interventions for pain control. No imaging today, patient agrees with plan of care. Naproxen RX sent. Last Recorded V/S: Last Vital Signs Temp 36.7 C 04/26/21 17:27 Pulse 69 04/26/21 17:27 Resp 14 04/26/21 17:27 BP 153/96 H 04/26/21 17:27 Pulse Ox 97 04/26/21 17:27 Departure - Departure Time of Disposition: 18:12 Condition: Good Sepsis Event Note (ED) - Evaluation Sepsis Screening Result: No Definite Risk Attestation - Student - Attestation Statement Attestation Statement: I personally performed or re-performed the physical examination and medical decision making. I have verified all student documentation or findings, including history, physical exam and/or medical decision making.
== END 2021-04-26 18:23 | disposition home or self-care (01) ==
LOC: JP.ED 15:45
DX: M54.2 Cervicalgia (principal); H92.01 Otalgia, right ear; Z79.899 Other long term (current) drug therapy
CPT/HCPCS: 99283

== ENCOUNTER 2021-06-21 08:56 | Day surgery (SDC) | payer MEDICAID ==
[2021-06-21] MEDS ORDERED: Midazolam 1 MG/ML 2 ML SDV ONE (09:39)
[2021-06-21] MEDS ORDERED: fentaNYL 100 MCG/2 ML SDV ONE (09:39)
[2021-06-21] MEDS ORDERED: Propofol 200 MG/20 ML SDV ONE (09:39)
[2021-06-21] MEDS ORDERED: Sodium Chloride 0.9% 1,000 ML IV SCH (10:00)
--- NOTE | 2021-06-24 09:05 | OR ---
DATE OF PROCEDURE: 06/21/2021 SURGEON: Fred Diehl MD PROCEDURE: Esophagogastroduodenoscopy. FINDINGS: Mild inflammation concerning for gastroesophageal reflux disease. COMPLICATIONS: None. CORRECTIONAL CASEWORK SPECIALIST: None. ANESTHESIA: MAC. PREOPERATIVE DIAGNOSIS: Epigastric pain. POSTOPERATIVE DIAGNOSIS: Epigastric pain. Risks: Risks, benefits, alternatives, and limitations including, but not limited to infection, bleeding, perforation, false positives, false negatives were explained to the patient who wished to proceed. PROCEDURE IN DETAIL: The patient was placed in left lateral decubitus position. The EGD scope was introduced and advanced atraumatically to the second part of the duodenum. No evidence of duodenitis or ulceration. Within the stomach itself, there was no gastritis or ulceration. No hiatal hernia. The patient had very mild inflammation in the GE junction, possibly concerning for reflux disease. This was biopsied multiple times using cold biopsy forceps. The air was removed from the stomach. The esophagus was inspected without abnormality. The patient tolerated the procedure well. Of note, the patient did have significant anxiety in the perioperative timeframe which most likely is contributing to his possible GERD. Fred Diehl MD /[id number]
== END 2021-06-21 12:17 | disposition home or self-care (01) ==
LOC: JP.SDS 08:56
PROVIDERS: ATTEND Surgery
DX: K20.0 Eosinophilic esophagitis (principal); K22.8 Other specified diseases of esophagus; K21.9 Gastro-esophageal reflux disease without esophagitis
CPT/HCPCS: 43239; J2250; J2704; J3010; J7030; 88305

== ENCOUNTER 2022-03-01 08:49 | Emergency (ER) | payer MEDICAID | END 2022-03-01 09:40 | disposition home or self-care (01) | LOC: JP.ED 08:49 | DX: J06.9 Acute upper respiratory infection, unspecified (principal); L50.9 Urticaria, unspecified; R03.0 Elevated blood-pressure reading, without diagnosis of hypertension; E66.9 Obesity, unspecified; Z68.33 Body mass index [BMI] 33.0-33.9, adult; Z79.899 Other long term (current) drug therapy | CPT/HCPCS: 99282 ==

== ENCOUNTER 2025-05-08 17:18 | Emergency (ER) | payer SELFPAY | END 2025-05-08 18:55 | disposition home or self-care (01) | LOC: JP.ED 17:18 | DX: R10.11 Right upper quadrant pain (principal) | CPT/HCPCS: 99283 ==